=== PATIENT | male | born 1955 | race Caucasian/White ===

== ENCOUNTER 2022-03-09 10:48 | Emergency (ER) | payer MEDICARE ==
[~2022-03-09] VITALS: Ht 172.7 cm; Wt 97.5 kg
[2022-03-09] VITALS (11 sets, daily range): BP systolic 115–138; BP diastolic 56–81
[2022-03-09] MEDS ORDERED: LISINOPRIL10 MG PO (11:10)
[2022-03-09] MEDS ORDERED: METFORMIN HYD1000 MG PO (11:12)
[2022-03-09 12:51] LABS: URINE BILIRUBIN - DIPSTICK NEGATIVE (NEGATIVE); URINE BLOOD DIPSTICK NEGATIVE (NEGATIVE); URINE COLOR YELLOW; URINE GLUCOSE - DIPSTICK NEGATIVE (NEGATIVE); URINE KETONE NEGATIVE (NEGATIVE); URINE LEUK ESTERASE NEGATIVE (NEGATIVE); URINE PROTEIN - DIPSTICK NEGATIVE (NEG-TRACE); URINE SPECIFIC GRAVITY <=1.005; URINE UROBILINOGEN - DIPSTICK 0.2 E.U./dL (0.2)
[2022-03-09 12:57] LABS: URINE NITRITE - DIPSTICK NEGATIVE (Negative)
[2022-03-09] MEDS ORDERED: FLEXERIL5 M1 PO (13:14)
[2022-03-09] MEDS ORDERED: PERCOCET 5/321 COMBO PO (13:14)
== END 2022-03-09 13:45 | disposition home or self-care (01) ==
LOC: ED 10:48
PROVIDERS: Nurse Practitioner
DX: M54.6 Pain in thoracic spine (principal); S30.1XXA Contusion of abdominal wall, initial encounter; S00.01XA Abrasion of scalp, initial encounter; S40.812A Abrasion of left upper arm, initial encounter; S40.811A Abrasion of right upper arm, initial encounter; S80.812A Abrasion, left lower leg, initial encounter; S80.811A Abrasion, right lower leg, initial encounter; E11.9 Type 2 diabetes mellitus without complications; F17.210 Nicotine dependence, cigarettes, uncomplicated; N20.0 Calculus of kidney; K46.9 Unspecified abdominal hernia without obstruction or gangrene; I25.2 Old myocardial infarction; W10.9XXA Fall (on) (from) unspecified stairs and steps, initial encounter; Z79.84 Long term (current) use of oral hypoglycemic drugs; Z90.5 Acquired absence of kidney; Z95.5 Presence of coronary angioplasty implant and graft

== ENCOUNTER 2024-04-06 19:48 | Emergency (ER) | payer MEDICARE ==
[~2024-04-06] VITALS: Ht 172.7 cm; Wt 83.0 kg
[~2024-04-06 19:48] MED LIST: FLEXERIL5 M1 PO; LISINOPRIL10 MG PO; METFORMIN HYD1000 MG PO; PERCOCET 5/321 COMBO PO
[2024-04-06] MEDS ORDERED: SODIUM CHLORIDE 0.9% 1,000 ML IV ONE ×2 (21:55)
[2024-04-06 22:20] LABS: BASO% 0.1 % (0-3); EOS% 13.8 % (0-8); HEMATOCRIT 44.8 % (39.0-50.0); HEMOGLOBIN 14.8 g/dl (14.0-18.0); IMMATURE GRANULOCYTES 0.6 % (0.0-5.0); LYMPH% 11.4 % (15-41); MEAN CELL VOLUME 94.1 fL CALC (80.0-100.0); MEAN CORPUSCULAR HGB 31.1 pG CALC (26.0-32.0); MONO% 4.3 % (2-13); NEUT# 18.39 thou/uL (1.82-7.42); NEUT% 69.8 % (42-76); RED BLOOD COUNT 4.76 mill/uL (4.70-6.10); RED CELL DISTRI WIDTH 12.8 % (11.5-15.5)
[2024-04-06 22:34] LABS: ALBUMIN 3.5 g/dL (3.2-5.0); BILIRUBIN, TOTAL 0.4 mg/dL (0.2-1.3); MAGNESIUM 1.3 mg/dL (1.6-2.3); POTASSIUM 5.1 mmol/l (3.5-5.1); TOTAL PROTEIN 6.3 g/dL (6.3-8.2)
[2024-04-06 23:00] LABS: CREATININE 9.6 mg/dL (0.7-1.3)
[2024-04-07 01:36] LABS: URINE BILIRUBIN - DIPSTICK Negative (NEGATIVE); URINE BLOOD DIPSTICK Moderate (NEGATIVE); URINE GLUCOSE - DIPSTICK Negative (NEGATIVE); URINE KETONE Negative (NEGATIVE); URINE NITRITE - DIPSTICK Negative (Negative); URINE PROTEIN - DIPSTICK 100 mg/dL (NEG-TRACE); URINE UROBILINOGEN - DIPSTICK 0.2 E.U./dL (0.2)
[2024-04-07 01:42] LABS: URINE COLOR Yellow; URINE LEUK ESTERASE Small (NEGATIVE)
[2024-04-07 01:46] LABS: URINE BACTERIA MANY hpf; URINE EPITHELIAL CELLS MANY EPI/hpf (0-FEW); URINE WBC 20-50 WBC/hpf (0-5)
[2024-04-07] MEDS ORDERED: cefTRIAXone SODIUM 2 GM in SODIUM CHLORIDE 0.9% 100 ML IV ONE (01:50)
[2024-04-07] MEDS ORDERED: SODIUM CHLORIDE 0.9% 1,000 ML IV ONE (02:10)
[2024-04-07 03:31] VITALS: BP 128/92
== END 2024-04-07 03:42 | disposition short-term general hospital (02) ==
LOC: ED 19:48
PROVIDERS: Family Medicine
DX: N39.0 Urinary tract infection, site not specified (principal); N17.9 Acute kidney failure, unspecified; I10 Essential (primary) hypertension; E11.9 Type 2 diabetes mellitus without complications; I25.2 Old myocardial infarction; Z95.5 Presence of coronary angioplasty implant and graft; Z90.5 Acquired absence of kidney; Z79.84 Long term (current) use of oral hypoglycemic drugs; Z20.822 Contact with and (suspected) exposure to COVID-19
CPT/HCPCS: J0696